=== PATIENT | male | born 1990 | race Caucasian/White ===

== ENCOUNTER 2019-11-08 16:24 | Inpatient (IN) | payer OTHER ==
[~2019-11-08] VITALS: Ht 162.6 cm; Wt 77.1 kg
--- NOTE | 2019-11-08 16:33 | NUR ---
SE RECIBE PACIENTE DE 29 YRS, EN AMBULANCIA, [facility] [id number], CON DOLOR ABDOMINAL, HX. CHRONS, CULLEN. DR.NICOLAS DALTON. SE UBICA EN BROOK # 11, CON BARRANDAS ELEVADAS Y NIVEL MAS BAJO.
--- NOTE | 2019-11-08 16:52 | NUR ---
PT ALERTA Y ORINETADA X3 ESFERAS SE LE ORIENTA SOBRE TX Y REFIERE ENTEDER. SE MATTHEW MUESTRAS DE SAM Y VENOPUNCION CON TECNCIAS ASEPTICAS. SE ADMINISTRAN IVLFUIDS ORDENADOS. PT TOLERA TX, TRANQUILO Y SIN DIFICULTAD RESPIRATORIA. SE MANTIENE BAJO OBSERVACION POR CAMBIOS EN MAI.
[2019-11-23] MEDS ORDERED: PEPCID AC20 MG PO (08:53)
[2019-11-23] MEDS ORDERED: PERCOCET 5-3251 EACH PO (08:53)
[2019-11-23] MEDS ORDERED: INTESTINEX680 M1 PO (08:53)
== END 2019-11-23 13:56 | disposition home or self-care (01) | DRG 330 ==
LOC: ER 16:24 → SEC-K 17:38 → SURH 17:38 → SEC-K 11-09 04:44 → SURG 11-09 08:05 → SEC-K 11-09 10:09 → SURH 11-09 18:45
PROVIDERS: ADMIT Surgery; ATTEND Surgery
PROC: 8E0ZXY6 Isolation (ICD-10-PCS; 2019-11-08)
PROC: 8E0ZXY6 Isolation (ICD-10-PCS; 2019-11-09)
PROC: 05HY33Z Insertion of Infusion Device into Upper Vein, Percutaneous Approach (ICD-10-PCS; 2019-11-10)
PROC: 3E0336Z Introduction of Nutritional Substance into Peripheral Vein, Percutaneous Approach (ICD-10-PCS; 2019-11-10)
PROC: BW21Y0Z Computerized Tomography (CT Scan) of Abdomen and Pelvis using Other Contrast, Unenhanced and Enhanced (ICD-10-PCS; 2019-11-11)
PROC: 0DTJ4ZZ Resection of Appendix, Percutaneous Endoscopic Approach (ICD-10-PCS; 2019-11-15)
PROC: 0DTH4ZZ Resection of Cecum, Percutaneous Endoscopic Approach (ICD-10-PCS; principal; 2019-11-15 07:00)
PROC: 30243N1 Transfusion of Nonautologous Red Blood Cells into Central Vein, Percutaneous Approach (ICD-10-PCS; 2019-11-17)
PROC: 0DH67UZ Insertion of Feeding Device into Stomach, Via Natural or Artificial Opening (ICD-10-PCS; 2019-11-18)
PROC: 3E0G76Z Introduction of Nutritional Substance into Upper GI, Via Natural or Artificial Opening (ICD-10-PCS; 2019-11-18)
DX: K50.013 Crohn's disease of small intestine with fistula (principal); K56.690 Other partial intestinal obstruction; K92.1 Melena; D62 Acute posthemorrhagic anemia; R11.2 Nausea with vomiting, unspecified; K36 Other appendicitis; K66.0 Peritoneal adhesions (postprocedural) (postinfection); J45.20 Mild intermittent asthma, uncomplicated; Z03.818 Encounter for observation for suspected exposure to other biological agents ruled out

== ENCOUNTER 2019-11-29 16:34 | Inpatient (IN) | payer OTHER ==
[~2019-11-29] VITALS: Ht 162.6 cm; Wt 77.1 kg
[~2019-11-29 16:34] MED LIST: INTESTINEX680 M1 PO; PEPCID AC20 MG PO; PERCOCET 5-3251 EACH PO
[2019-12-20] MEDS ORDERED: PREDNISONE 5MG PO (12:21)
[2019-12-20] MEDS ORDERED: PROTEINEX-18 LI30 ML PO (12:21)
[2019-12-20] MEDS ORDERED: PROTONIX40 MG PO (12:21)
== END 2019-12-20 18:57 | disposition home or self-care (01) | DRG 862 ==
LOC: ER 16:34 → ICU-2 11-30 09:39 → SURH 11-30 09:39 → SEC-K 12-02 11:12 → MEDI 12-02 11:13 → SEC-K 12-02 12:07 → SURH 12-02 13:39
PROVIDERS: ADMIT Internal Medicine Geriatric Medicine; ATTEND Internal Medicine Geriatric Medicine
PROC: 0W9G30Z Drainage of Peritoneal Cavity with Drainage Device, Percutaneous Approach (ICD-10-PCS; principal; 2019-11-30)
PROC: 02H633Z Insertion of Infusion Device into Right Atrium, Percutaneous Approach (ICD-10-PCS; 2019-12-01)
PROC: 4A12X4Z Monitoring of Cardiac Electrical Activity, External Approach (ICD-10-PCS; 2019-12-02)
PROC: BW20YZZ Computerized Tomography (CT Scan) of Abdomen using Other Contrast (ICD-10-PCS; 2019-12-07)
PROC: 0W9G30Z Drainage of Peritoneal Cavity with Drainage Device, Percutaneous Approach (ICD-10-PCS; 2019-12-08)
PROC: 8E0ZXY6 Isolation (ICD-10-PCS; 2019-12-10)
PROC: BW20YZZ Computerized Tomography (CT Scan) of Abdomen using Other Contrast (ICD-10-PCS; 2019-12-15)
DX: T81.43XA Infection following a procedure, organ and space surgical site, initial encounter (principal); K65.1 Peritoneal abscess; A41.9 Sepsis, unspecified organism; K91.89 Other postprocedural complications and disorders of digestive system; E27.49 Other adrenocortical insufficiency; Z16.39 Resistance to other specified antimicrobial drug; E86.0 Dehydration; D64.9 Anemia, unspecified; B96.1 Klebsiella pneumoniae [K. pneumoniae] as the cause of diseases classified elsewhere; Z79.52 Long term (current) use of systemic steroids; B96.89 Other specified bacterial agents as the cause of diseases classified elsewhere; Y83.8 Other surgical procedures as the cause of abnormal reaction of the patient, or of later complication, without mention of misadventure at the time of the procedure; Z20.828 Contact with and (suspected) exposure to other viral communicable diseases; I87.2 Venous insufficiency (chronic) (peripheral)

== ENCOUNTER 2020-01-06 13:09 | Inpatient (IN) | payer OTHER ==
[~2020-01-06] VITALS: Ht 162.6 cm; Wt 70.3 kg
[~2020-01-06 13:09] MED LIST changes: +PREDNISONE 5MG PO; +PROTEINEX-18 LI30 ML PO; +PROTONIX40 MG PO
--- NOTE | 2020-01-06 13:23 | NUR ---
PTE REFIER QUE TIENE UN JENNIFER DOLOR ABDOMINAL EN EL CUADRANTE DERECHO SE UBICA PTE EN BROOK PTE DE MYNOR DALTON
--- NOTE | 2020-01-06 14:45 | NUR ---
PACIENTE ALERTA Y ORIENTADO EN TIEMPO LUGAR Y PERSONA. RN BERMAN ORIETA A PACIENTE SOBRE TRATAMIENTO, EL MISMO VERBALIZA ENTENDER. SE COLOCA VENOPUNCION EN BRAZO R+ PATENTE, JOHANN DE S/S DE INFILTRACION, SE CONECTA 0.9 NSS A 150ML/HR. SE COLECTAN MUESTRAS ORDENADAS Y PTE EN ESPERA DE RESULTADOS PARA RE-EVALUACION MEDICA.
[2020-01-20] MEDS ORDERED: INTESTINEX680 M1 PO (11:16)
[2020-01-20] MEDS ORDERED: PROTEINEX-18 LI30 ML PO (11:16)
[2020-01-20] MEDS ORDERED: PREDNISONE 5MG PO (11:16)
== END 2020-01-20 12:38 | disposition home or self-care (01) | DRG 862 ==
LOC: ER 13:09 → SEC-K 14:50 → SURH 14:50 → MEDJ 15:49 → SURH 16:25
PROVIDERS: ADMIT Internal Medicine Geriatric Medicine; ATTEND Internal Medicine Geriatric Medicine
PROC: 8E0ZXY6 Isolation (ICD-10-PCS; 2020-01-06)
PROC: 02H633Z Insertion of Infusion Device into Right Atrium, Percutaneous Approach (ICD-10-PCS; principal; 2020-01-07)
PROC: BW21YZZ Computerized Tomography (CT Scan) of Abdomen and Pelvis using Other Contrast (ICD-10-PCS; 2020-01-10)
PROC: BW21YZZ Computerized Tomography (CT Scan) of Abdomen and Pelvis using Other Contrast (ICD-10-PCS; 2020-01-17)
DX: T81.43XA Infection following a procedure, organ and space surgical site, initial encounter (principal); K65.1 Peritoneal abscess; K50.90 Crohn's disease, unspecified, without complications; J45.20 Mild intermittent asthma, uncomplicated; Z79.52 Long term (current) use of systemic steroids; Z20.828 Contact with and (suspected) exposure to other viral communicable diseases